=== PATIENT | female | born 1975 | race Caucasian/White ===

== ENCOUNTER 2016-08-24 13:25 | Emergency (ER) | payer OTHER ==
[2016-08-24 13:46] VITALS: BP 120/66
--- NOTE | 2016-08-24 13:52 | EDM.PDOC ---
ED HPI GENERAL MEDICAL PROBLEM - General Chief Complaint: Lower Extremity Injury/Pain Stated Complaint: LEFT ANKLE PAIN Time Seen by Provider: 08/24/16 13:33 Source of Information: Reports: Patient History Limitations: Reports: No Limitations - History of Present Illness INITIAL COMMENTS - FREE TEXT/NARRATIVE: PT STATES SHE SLIPPED ON STAIRS AND TWISTED HER LEFT ANKLE THIS AM. DENIES ANY OTHER INJURY, LOC, CP, OR SOB. Onset: Today Onset Date: 08/24/16 Onset Time: 04:30 Location: Reports: Lower Extremity, Left Quality: Reports: Ache Severity: Mild Improves with: Reports: None Worsens with: Reports: Movement Context: Reports: Trauma Associated Symptoms: Reports: No Other Symptoms - Related Data Allergies Allergy/AdvReac Type Severity Reaction Status Date / Time No Known Allergies Allergy Verified 08/13/16 11:21 Home Meds: Home Meds Diazepam [Diazepam] 5 mg PO DAILY 08/24/16 [History] FLUoxetine [PROzac] 20 mg PO DAILY 08/24/16 [History] Oxybutynin Chloride [Ditropan Xl] 10 mg PO DAILY 08/24/16 [History] Review of Systems - Review of Systems Review Of Systems: ROS reveals no pertinent complaints other than HPI. Constitutional: Reports: No Symptoms Eyes: Reports: No Symptoms Ears: Reports: No Symptoms Nose: Reports: No Symptoms Mouth/Throat: Reports: No Symptoms Respiratory: Reports: No Symptoms Cardiovascular: Reports: No Symptoms GI/Abdominal: Reports: No Symptoms Genitourinary: Reports: No Symptoms Musculoskeletal: Reports: Leg Pain Skin: Reports: No Symptoms Neurological: Reports: No Symptoms Psychiatric: Reports: No Symptoms Trauma Exam - Physical Exam Exam: See Below Exam Limited By: No Limitations General Appearance: Reports: Alert, WD/WN, No Apparent Distress Head: Reports: Atraumatic, Normocephalic Eyes: Bilateral Eye: Normal Inspection Nose: Reports: Normal Inspection, No Blood Throat/Mouth: Reports: Normal Inspection, Normal Oropharynx, No Airway Compromise Neck: Reports: Non-Tender, Full Range of Motion Respiratory Exam: Reports: No Respiratory Distress, Lungs Clear Cardiovascular: Reports: Regular Rate, Rhythm, No Murmur GI/Abdominal: Reports: Normal Bowel Sounds, Soft Back: Reports: Full Range of Motion, Normal Inspection, Non-Tender. Denies: CVA Tenderness (R), CVA Tenderness (L) Extremities: No Pedal Edema, Pain with Movement, Tenderness (LEFT ANKLE LAT MALLEOLUS / ANTERIOR PROXIMAL TIBIA) Neurologic: Reports: Normal Mood/Affect, Oriented x 3 Skin: Reports: Normal Color, Warm/Dry - Pearson Coma Score Best Eye Response (Pearson): (4) Open Spontaneously Best Verbal Response (Katty): (5) Oriented Best Motor Response (Katty): (6) Obeys Commands Course - Orders/Labs/Meds Orders: Active Orders 24 hr Category Date Time Status Ankle Min 3V Lt [CR] Stat Exams 08/24/16 13:39 Ordered Tibia Fibula Lt [CR] Stat Exams 08/24/16 13:39 Ordered - Radiology Interpretation Free Text/Narrative:: XRAYS NEGATIVE - Re-Assessments/Exams Free Text/Narrative Re-Assessment/Exam: 08/24/16 15:01 PT AFEBRILE, NONTOXIC APPEARING, Departure - Departure Time of Disposition: 15:02 Disposition: Home, Self-Care 01 Condition: good Clinical Impression: Sprain of ankle, left Qualifiers: Encounter type: initial encounter Involved ligament of ankle: unspecified ligament Qualified Code(s): S93.402A - Sprain of unspecified ligament of left ankle, initial encounter Contusion Qualifiers: Encounter type: initial encounter Contusion area: lower leg Laterality: left Qualified Code(s): S80.12XA - Contusion of left lower leg, initial encounter - Discharge Information Instructions: Ankle Sprain, [id number], Foot Contusion, [id number] Additional Instructions: FOLLOW UP WITH PCP IN NEXT 2 DAYS. RETURN TO ER SOONER IF SYMPTOMS CONTINUE - My Orders Last 24 Hours: My Active Orders 08/24/16 13:39 Ankle Min 3V Lt [CR] Stat Tibia Fibula Lt [CR] Stat - Assessment/Plan Last 24 Hours: My Active Orders 08/24/16 13:39 Ankle Min 3V Lt [CR] Stat Tibia Fibula Lt [CR] Stat Assessment:: ANKLE SPRAIN Plan: F/U WITH PCP
== END 2016-08-24 15:20 | disposition home or self-care (01) ==
LOC: KA.ED 13:25
DX: S93.402A Sprain of unspecified ligament of left ankle, initial encounter (principal); S80.12XA Contusion of left lower leg, initial encounter; Z79.899 Other long term (current) drug therapy; W10.9XXA Fall (on) (from) unspecified stairs and steps, initial encounter
CPT/HCPCS: 73590-LT; 73630-LT; 99283

== ENCOUNTER 2016-11-17 07:00 | Inpatient (IN) | payer OTHER ==
[~2016-11-17 07:00] MED LIST: Bupivacaine 0.5%/EPINEPHrine 1:200,000 30 ML SDV ONE; Lactated Ringers 1,000 ML IV SCH; Methylene Blue 50 MG/10 ML Ampule ONE; Sodium Chloride 0.9% 5 ML Syringe FLUSH PRN; ceFAZolin 1 GM Vial ONE
[2016-11-17] MEDS ORDERED: ceFAZolin 1 GM Vial ONE (07:02)
[2016-11-17] MEDS ORDERED: fentaNYL 100 MCG/2 ML SDV ONE (07:02)
[2016-11-17] MEDS ORDERED: Midazolam 1 MG/ML 2 ML SDV ONE (07:02)
[2016-11-17] MEDS ORDERED: Dexamethasone 4 MG/ML SDV ONE (07:03)
[2016-11-17] MEDS ORDERED: Propofol 200 MG/20 ML SDV ONE (07:03)
[2016-11-17] MEDS ORDERED: Lactated Ringers 1,000 ML ONE ×2 (07:03→08:41)
[2016-11-17] MEDS ORDERED: Scopolamine 1.5 MG Transdermal Patch ONE (08:26)
[2016-11-17] MEDS ORDERED: Neostigmine Methylsulfate 10 MG/10 ML MDV ONE (08:26)
[2016-11-17] MEDS ORDERED: Propofol 200 MG/20 ML SDV IV ONE (08:29)
[2016-11-17] MEDS ORDERED: Midazolam 1 MG/ML 2 ML SDV IV ONE (08:29)
[2016-11-17] MEDS ORDERED: Neostigmine Methylsulfate 10 MG/10 ML MDV IV ONE (08:29)
[2016-11-17] MEDS ORDERED: Dexamethasone 4 MG/ML SDV IV ONE (08:29)
[2016-11-17] MEDS ORDERED: ceFAZolin 1 GM Vial IV ONE (08:29)
[2016-11-17] MEDS ORDERED: Rocuronium 50 MG/5 ML Vial IV ONE (08:29)
[2016-11-17] MEDS ORDERED: Glycopyrrolate 0.2 MG/ML 5 ML MDV IV ONE (08:29)
[2016-11-17] MEDS ORDERED: Scopolamine 1.5 MG Transdermal Patch TOP ONE (08:29)
[2016-11-17] MEDS ORDERED: Succinylcholine 200 MG/10 ML MDV IV ONE (08:29)
[2016-11-17] MEDS ORDERED: Ondansetron 4 MG/2 ML SDV IV ONE (08:29)
[2016-11-17] MEDS ORDERED: fentaNYL 100 MCG/2 ML SDV IV ONE (08:29)
--- NOTE | 2016-11-17 08:41 | PCM.PN ---
- General Info Date of Service: 11/17/16 - Review of Systems Systems Review Comment:: 40 y/o female with history of heavy menstrual bleeding here for Lap assisted Vag Hysterectomy and also removal of both ovaries. She is stable to proceed. Risks such as but not limited to bleeding, infection, organ injury and possible open procedure reviewed with patient. She agrees to proceed. - Patient Data Vitals - Most Recent: Last Vital Signs Temp 98.2 F 11/17/16 07:25 Pulse 71 11/17/16 07:25 Resp 18 11/17/16 07:25 BP 125/77 11/17/16 07:25 Pulse Ox 98 11/17/16 07:25 Weight - Most Recent: 118.614 kg Lab Results Last 24 Hours: Laboratory Results - last 24 hr 11/13/16 11/17/16 Range/Units 08:00 07:20 Urine HCG, Qual Negative (NEGATIVE) Blood Type A POSITIVE Gel Antibody Screen Negative Med Orders - Current: Current Medications Lactated Ringer's (Ringers, Lactated) 1,000 mls @ 50 mls/hr IV ASDIRECTED ELVIN Last Admin: 11/17/16 07:55 Dose: 50 mls/hr Sodium Chloride (Syrex Flush) 5 ml FLUSH Q8HR PRN PRN Reason: Keep Vein Open Discontinued Medications Bupivacaine HCl/Epinephrine Bitart (Marcaine 0.5%/Epinephrine 1:200,000) Confirm Administered Dose 30 ml .ROUTE .STK-MED ONE Stop: 11/17/16 06:37 Cefazolin Sodium (Ancef) Confirm Administered Dose 1 gm .ROUTE .STK-MED ONE Stop: 11/17/16 06:37 Cefazolin Sodium (Ancef) Confirm Administered Dose 2 gm .ROUTE .STK-MED ONE Stop: 11/17/16 07:03 Dexamethasone (Dexamethasone) Confirm Administered Dose 4 mg .ROUTE .STK-MED ONE Stop: 11/17/16 07:04 Fentanyl (Sublimaze) Confirm Administered Dose 500 mcg .ROUTE .STK-MED ONE Stop: 11/17/16 07:03 Lactated Ringer's (Ringers, Lactated) Confirm Administered Dose 1,000 mls @ as directed .ROUTE .STK-MED ONE Stop: 11/17/16 07:04 Methylene Blue (Provayblue) Confirm Administered Dose 50 mg .ROUTE .STK-MED ONE Stop: 11/17/16 06:37 Midazolam HCl (Versed 1 Mg/Ml) Confirm Administered Dose 2 mg .ROUTE .STK-MED ONE Stop: 11/17/16 07:03 Propofol (Diprivan 20 Ml) Confirm Administered Dose 200 mg .ROUTE .STK-MED ONE Stop: 11/17/16 07:04 - Problem List Review Problem List Initiated/Reviewed/Updated: Yes - My Orders Last 24 Hours: My Active Orders 11/17/16 07:00 Antiembolic Devices [RC] PER UNIT ROUTINE Patient to Empty Bladder [RC] ASDIRECTED Peripheral IV Care [RC] . DIRECTED Verify Patient Consent Obtain [RC] ASDIRECTED Lactated Ringers [Ringers, Lactated] 1,000 ml IV ASDIRECTED Sodium Chloride 0.9% [Syrex Flush] 5 ml FLUSH Q8HR PRN Peripheral IV Insertion Adult [OM.PC] Routine Sequential Compression Device [OM.PC] Routine 11/17/16 Breakfast Nothing Per Oral Diet [DIET] - Assessment Assessment:: Heavy Uterine Bleeding - Plan Plan:: ALICE with BSO
[2016-11-17] MEDS ORDERED: Bacitracin/Neomycin/Polymyxin B Oint 28.4 GM Tube ONE (08:58)
[2016-11-17] MEDS ORDERED: Methylene Blue 50 MG/10 ML Ampule ONE (09:15)
[2016-11-17] MEDS ORDERED: Bupivacaine 0.5%/EPINEPHrine 1:200,000 30 ML SDV INJECT ONE (09:15)
[2016-11-17] MEDS ORDERED: Ondansetron 4 MG/2 ML SDV IVPUSH PRN ×2 (09:51→11:43)
[2016-11-17] MEDS ORDERED: Morphine 2 MG/ML Syringe IVPUSH PRN (09:51)
[2016-11-17] MEDS ORDERED: diphenhydrAMINE 50 MG/ML SDV IVPUSH PRN (09:52)
[2016-11-17] MEDS ORDERED: Bacitracin/Neomycin/Polymyxin B Oint 0.9 GM U/D Packet TOP ONE (10:21)
[2016-11-17] MEDS: Morphine 4 MG/ML Syringe IVPUSH PRN ×2 (11:39→11:45)
--- NOTE | 2016-11-17 11:42 | PCM.OPNOTE ---
- General Post-Op/Procedure Note Date of Surgery/Procedure: 11/17/16 Operative Procedure(s): Laproscopically assisted vaginal hysterectomy and bilateral oophorectomy Findings: Moderately enlarged but smooth walled uterus enlarged ovaries with cystic changes bilaterally Pre Op Diagnosis: Abnormal uterine bleeding Post-Op Diagnosis: Same Anesthesia Technique: General ET Tube Primary Surgeon: Nick Castellanos Transition Coach: Naga Grover Pathology: uterus and bilateral adnexa EBL in mLs: 600 Complications: None Condition: Good
[2016-11-17] MEDS ORDERED: Acetaminophen/HYDROcodone 325-5 MG Tab PO PRN (11:43)
[2016-11-17] MEDS: fentaNYL 100 MCG/2 ML SDV IVPUSH PRN ×2 (12:00→12:10)
[2016-11-17] MEDS: Morphine PF 30 MG/30 ML PCA Vial IV PRN ×2 (13:20→19:55)
[2016-11-17] MEDS: Lactated Ringers 1,000 ML IV SCH ×2 (13:28→21:47)
[2016-11-17] MEDS: Acetaminophen/HYDROcodone 325-5 MG Tab PO PRN ×2 (15:30→21:54)
[2016-11-17] MEDS: ceFAZolin 1 GM in Sodium Chloride 0.9% 100 ML IV SCH (17:45)
--- NOTE | 2016-11-17 21:01 | PROC ---
PROVIDER: Nick Castellanos MD OPERATING SURGEON: Nick Castellanos M.D. SENIOR MARKETING COORDINATOR AND REFERRING PHYSICIAN: Dr. Naga Grover. Gamma Operator necessary for retraction help with dissection and efficiency. PRE-PROCEDURE DIAGNOSIS: Abnormal uterine bleeding. POST-PROCEDURE DIAGNOSIS: Abnormal uterine bleeding. PROCEDURE PERFORMED: Laparoscopically assisted vaginal hysterectomy with bilateral salpingo-oophorectomy. INDICATIONS FOR SURGERY: This 40-year-old female has a several year history of heavy abnormal uterine bleeding. This has not responded to attempts at conservative management and she comes for hysterectomy. She also requested both ovaries be removed. FINDINGS: The patient's uterus is moderately enlarged, but has a smooth surface. The ovaries also show moderate enlargement bilaterally with some benign cystic changes. PROCEDURE: The patient was taken to the operating room. She was given general endotracheal anesthesia. She was placed in the dorsal lithotomy position. The abdomen and perineum were sterilely prepped and draped. An infraumbilical stab wound incision was made and through this, a Veress needle was inserted pneumoperitoneum via this needle to a pressure of 15 mmHg was achieved with carbon dioxide. The Veress needle was then replaced with a 5 mm trocar into which the 5 mm laparoscopic camera was inserted. Under direct visualization, the 12 mm trocars were placed in the right and left lower quadrants under direct visualization. All trocar sites were infiltrated with Marcaine prior to incision. Intraabdominal inspection was carried out and attention was turned to the pelvis and Endo-TEAGAN was fired across the right infundibulopelvic ligament and then another firing was carried out across the right round ligament. The same procedure was then carried out on the left-hand side freeing the upper portion of the uterus and adnexa. The peritoneum overlying the bladder and its junction with the uterus was then carefully inscribed and then an additional firing of the Endo-TEAGAN was taken across the right and then left upper portion of the broad ligament. Attention was then turned to the pelvis. The cervix was exposed and circumferentially inscribed with cautery. The posterior vaginal wall was then opened adjacent to the posterior wall of the uterus and the peritoneum entered. The right and the left uterosacral ligaments, they were clamped, divided, and securely tied with 0 Vicryl ligatures. The anterior vaginal wall was then carefully dissected back off the anterior surface of the cervix and uterus. This was carefully carried out with blunt dissection and as more exposure was gained lateral attachments of the uterus were clamped and divided with 0 Vicryl ligatures used to control the vascular pedicles. As the uterus was able to be more fully mobilized, the peritoneum was entered anteriorly and the remaining lateral attachments of the uterus including the uterine vessels were sterilely clamped, divided, and tied. Once all attachments to the uterus have been freed, the uterus and adnexa were removed vaginally. The vaginal cuff was inspected and the angle sutures of both the right and left sides were placed under direct visualization. The Freitas stitch with #1 Vicryl was also placed and then the vaginal cuff was closed with a running #1 Vicryl and the Freitas stitch tied. A Gonzalez catheter was inserted and methylene blue was instilled into the bladder. Careful inspection along the vaginal suture line showed no sign of blue leaking or any evidence of complication. Examination intra-abdominally was then carried out again via the laparoscope. The suture line and staple lines were carefully examined. All were found to be intact with no sign of bleeding and there was no evidence of blue leaking at all along the areas of dissection. The pneumoperitoneum was then evacuated and the trocars were removed under direct visualization. The wounds were irrigated with Betadine and saline solution. The skin incisions were approximated with interrupted 4-0 Vicryl in a subcuticular stitch. Steri-Strips and benzoin were applied followed by antibiotic ointment and sterile dressings. The patient was then awakened, extubated, and taken from the operating room in satisfactory condition. ESTIMATED BLOOD LOSS: 600 mL. COMPLICATIONS: None. PROGNOSIS: Good. /[id number]/MODL
[2016-11-18] MEDS: ceFAZolin 1 GM in Sodium Chloride 0.9% 100 ML IV SCH (00:45)
[2016-11-18] MEDS: Lactated Ringers 1,000 ML IV SCH (05:50)
[2016-11-18] MEDS ORDERED: Oxybutynin 5 MG Tab.ER PO SCH (09:00)
[2016-11-18] MEDS ORDERED: Lactated Ringers 1,000 ML IV SCH (09:30)
[2016-11-18] MEDS ORDERED: Docusate Sodium 100 MG Cap PO SCH (09:30)
[2016-11-18] MEDS ORDERED: fentaNYL 250 MCG/5 ML SDV IVPUSH PRN (09:34)
[2016-11-18] MEDS: Acetaminophen/HYDROcodone 325-5 MG Tab PO PRN ×2 (09:45→13:58)
[2016-11-18] MEDS ORDERED: hydrOXYzine Pamoate 25 MG Cap PO PRN (11:03)
[2016-11-18] MEDS ORDERED: hydrOXYzine HCl 25 MG Tab PO PRN (11:26)
[2016-11-18] MEDS ORDERED: fentaNYL 100 MCG/2 ML SDV IVPUSH PRN (12:28)
[2016-11-18 14:59] VITALS: BP 87/54
--- NOTE | 2016-11-19 09:40 | PN ---
11/18/2016PATIENT NAME: LUIS ANGEL ALANIS SUBJECTIVE: This is a 40-year-old patient, who underwent a lap-assisted vaginal hysterectomy yesterday by Dr. Nick Castellanos and myself. Today is the first postop day. PHYSICAL EXAMINATION: VITAL SIGNS: Her vital signs are as follows, temperature is 98.7, pulse rate is 57, blood pressure is 100/54, oxygen saturation is 97%. Intake output over the last 24 hours, intake was 3511 and output was 4000 - 489 mL. GENERAL: The patient is alert. HEAD: Normocephalic. EYES: Normal. MOUTH: Slightly dry. NECK: Supple. HEART: Stable. LUNGS: Clear to percussion and auscultation. ABDOMEN: Soft. Minimal tenderness noted. Bowel tones are very slightly active. EXTREMITIES: Normal. NEUROLOGIC: Intact. LABORATORY DATA: Postop hemoglobin is 11.1, preop was 12.5. FINAL DIAGNOSES: Status post lap-assisted vaginal hysterectomy yesterday, doing quite well. Making sufficient progress. She complains of itching most likely due to IV morphine. We will switch to fentanyl and see if this would make a difference and also cut back IVs. Take the Gonzalez catheter out. Start her on estradiol patch 0.1 mg per week. Dulcolax or Colace stool softeners to help with the bowel movements. Encourage ambulation. Possible discharge later this afternoon if she is up to it. /[id number]/MODL
--- NOTE | 2016-11-20 08:21 | DISCH ---
HOSPITAL COURSE: This 40-year-old patient was admitted to the hospital for a lap-assisted vaginal hysterectomy because of prolonged bleeding, pelvic pain, and dyspareunia. On 11/17/2016, the patient underwent the operative procedure of lap-assisted vaginal hysterectomy by Dr. Nick Castellanos and myself. The operative procedure was uneventful. On the day following the surgical procedure, she did fine. Vital signs were stable. Her postop hemoglobin was 11.1, preop was 12.5. At the time of my examination, the patient was alert, in no immediate distress. Vital signs were stable. heart and lungs were stable. Abdomen was soft. Very minimal bowel sounds were present. Extremities normal. The patient's intake and output were satisfactory. The patient started to have flatus and did well postoperatively. She did have some slight itching probably from the IV morphine. This was changed to fentanyl. On 11/18/2016, the patient was discharged in a satisfactory condition, to be seen back in followup in about 10 days' time. Discharge medications will include estradiol patch 0.1 mg per day weekly. Hydrocodone/Tylenol 10/325 up to one tablet b.i.d. on a p.r.n. basis. She can take Tylenol or Motrin for moderate pain. We have discussed the diet, activity, wound care, etc. We will see this patient back in followup in two weeks. If she has any further problems in the meantime, she will call the clinic at [place], [place]. /[id number]/MODL
== END 2016-11-18 15:45 | disposition home or self-care (01) | DRG 743 ==
LOC: KA.SDS 07:00 → KA.MS 11:43
PROVIDERS: ADMIT Surgery; ATTEND Family Medicine
PROC: 0UT9FZZ Resection of Uterus, Via Natural or Artificial Opening With Percutaneous Endoscopic Assistance (ICD-10-PCS; principal; 2016-11-17)
PROC: 0UT2FZZ Resection of Bilateral Ovaries, Via Natural or Artificial Opening With Percutaneous Endoscopic Assistance (ICD-10-PCS; 2016-11-17)
PROC: 0UT7FZZ Resection of Bilateral Fallopian Tubes, Via Natural or Artificial Opening With Percutaneous Endoscopic Assistance (ICD-10-PCS; 2016-11-17)
DX: N93.9 Abnormal uterine and vaginal bleeding, unspecified (principal); L29.8 Other pruritus; T40.2X5A Adverse effect of other opioids, initial encounter; Y92.230 Patient room in hospital as the place of occurrence of the external cause
CPT/HCPCS: 36415; 81025; 84132; 85014; 85018; 86850; 86900; 86901; A9270-GY; J0330; J0690; J1100; J1200; J2250; J2270; J2274; J2405; J2704; J2710; J3010; J3490; J7050; J7120